=== PATIENT | female | born 1975 | race Caucasian/White ===

== ENCOUNTER → 2018-05-04 | Outpatient (CLI) | payer BC ==
[2005-10-31 20:04] VITALS: TEMP 98.3
== END ==
LOC: MC.RAD 06:51
DX: Z12.31 Encounter for screening mammogram for malignant neoplasm of breast (principal)

== ENCOUNTER 2018-06-19 14:00 | Outpatient (RCR) | payer BC ==
[2005-10-31 20:04] VITALS: TEMP 98.3
== END 2018-07-01 08:59 | disposition home or self-care (01) ==
LOC: MKS.ESL.PT 14:00
DX: M79.641 Pain in right hand (principal); M79.642 Pain in left hand; M79.601 Pain in right arm; M79.602 Pain in left arm; M25.519 Pain in unspecified shoulder; G89.29 Other chronic pain

== ENCOUNTER → 2019-07-29 | Outpatient (CLI) | payer BC ==
[2005-10-31 20:04] VITALS: TEMP 98.3
== END ==
LOC: MC.RAD 08:08
DX: Z12.31 Encounter for screening mammogram for malignant neoplasm of breast (principal)

== ENCOUNTER 2021-08-03 08:56 | Day surgery (SDC) | payer BC ==
[~2021-08-03] VITALS: Ht 167.6 cm; Wt 70.0 kg
[2021-08-03 10:48] VITALS: BP 120/76; PULSE 74; TEMP 99
[2021-08-03] MEDS ORDERED: TEMOVATE0.05% TP (10:52)
[2021-08-03] MEDS ORDERED: PAMELOR 25MG25 MG PO (10:52)
[2021-08-03] MEDS ORDERED: AVIANE 0.02 MG-1 TAB PO (10:53)
[2021-08-03] MEDS ORDERED: SYNALAR CR0.115GM TP (10:53)
[2021-08-03] MEDS ORDERED: LEXAPRO20 MG PO (10:53)
[2021-08-03 11:45] VITALS: BP 119/80; BP 119/90; PULSE 75; TEMP 98.4; TEMP 98.9
--- NOTE | 2021-08-03 11:50 | NUR ---
PT IS EXTREMELY SLEEPY. RETURNED TO BAY #6 X2 ASSIST. WILL ANSWER QUESTIONS WHEN ASKED. DENIES NAUSEA OR VOMITING AT THIS TIME. WILL CONT TO MONITOR PROGRESS.
[2021-08-03 12:00] VITALS: BP 110/71; PULSE 75
[2021-08-03 12:15] VITALS: BP 121/78; PULSE 66
[2021-08-03 12:30] VITALS: BP 116/76; PULSE 65
--- NOTE | 2021-08-03 13:51 | NUR ---
PT VERY SLEEPY, WOULD RESPOND TO NAME. AMBULATED X2 ASSIST TO CHAIR FROM CART. PT NOT AWAKE ENOUGH TO HAVE FLUID. VSS, SATS 100%. CALLED TO COME TO PT BEDSIDE. WILL CONT TO MONITOR PROGRESS.
--- NOTE | 2021-08-03 13:55 | NUR ---
PT CONTINUES TO BE VERY SLEEPY. WATER OFFERED. PT RESPONDS TO NAME AND VERBAL STIMULI. AT BEDSIDE. DR SHOEMAKER IN TO TALK WITH PT. PT WAS TOO SLEEPY TO HAVE POST-PROCEDURE CONVERSATION. VSS, WILL CONT TO MONITOR PROGRESS.
--- NOTE | 2021-08-03 13:58 | NUR ---
PT MORE AWAKE, TALKING WITH . PT TAKING SIPS OF WATER. REQUESTED JELLO. PT TOLERATING THE PO'S WITHOUT DIFFICULTY. WILL CONT TO MONITOR.
--- NOTE | 2021-08-03 14:00 | NUR ---
PT TOLERATING PO'S. IV WAS DC'D TO RIGHT HAND, PT TOLERATED WELL. PT SIGNED DISMISSAL INSTRUCTIONS, STATES UNDERSTANDING OF MATERIAL. PT WAS TAKEN TO PT VEHICLE PER WC, DRIVING.
== END 2021-08-03 13:30 | disposition home or self-care (01) ==
LOC: SDCO 08:56
DX: K62.89 Other specified diseases of anus and rectum (principal); K58.0 Irritable bowel syndrome with diarrhea; K58.1 Irritable bowel syndrome with constipation; R14.0 Abdominal distension (gaseous); R19.4 Change in bowel habit; K64.0 First degree hemorrhoids; J30.9 Allergic rhinitis, unspecified; K21.9 Gastro-esophageal reflux disease without esophagitis; F41.9 Anxiety disorder, unspecified; F32.9 Major depressive disorder, single episode, unspecified; Z20.822 Contact with and (suspected) exposure to COVID-19; Z79.899 Other long term (current) drug therapy
CPT/HCPCS: J2704; J7120